=== PATIENT | female | born 1965 | race African-American/Black ===

== ENCOUNTER 2017-11-03 15:35 | Emergency (ER) | payer BC, SELFPAY ==
--- NOTE | 2017-11-03 16:36 | RAD ---
THREE VIEWS RIGHT SHOULDER: Clinical history: Pain. FINDINGS: There is mild osteoarthritis of the right acromioclavicular joint. No fracture or dislocation of the right shoulder is identified. Incidental note of osteoarthrosis of the imaged spine. IMPRESSION: 1. No acute osseous abnormality. 2. Mild osteoarthritis. POS: [facility]
== END 2017-11-03 17:35 | disposition home or self-care (01) ==
LOC: ERS 15:35
DX: M19.012 Primary osteoarthritis, left shoulder (principal); M19.011 Primary osteoarthritis, right shoulder; G62.9 Polyneuropathy, unspecified; E78.5 Hyperlipidemia, unspecified; I10 Essential (primary) hypertension; F17.210 Nicotine dependence, cigarettes, uncomplicated

== ENCOUNTER 2018-11-12 06:33 | Emergency (ER) | payer BC, SELFPAY ==
[2018-11-12] MEDS ORDERED: Dexamethasone 4 MG TAB ONE (07:34)
== END 2018-11-12 07:39 | disposition home or self-care (01) ==
LOC: ERS 06:33
DX: J06.9 Acute upper respiratory infection, unspecified (principal); F17.210 Nicotine dependence, cigarettes, uncomplicated
CPT/HCPCS: 99283; J8540

== ENCOUNTER 2019-03-03 14:28 | Outpatient (CLI) | payer BC ==
--- NOTE | 2019-03-03 14:57 | MMO ---
Bilateral MAMMO Bilat Screen [facility]. CLINICAL HISTORY: Patient is 54 years old and is seen for screening. The patient has the following family history of breast cancer: niece. The patient has no personal history of cancer. VIEWS: The views performed were: bilateral craniocaudal with tomosynthesis and bilateral mediolateral oblique with tomosynthesis. FILMS COMPARED: The present examination has been compared to prior imaging studies performed at [facility] on 09/21/2013, 02/23/2016 and 04/23/2017. MAMMOGRAM FINDINGS: The breasts are heterogeneously dense, which could obscure a lesion on mammography. There are stable benign appearing calcifications seen in both breasts. There are no suspicious masses, suspicious calcifications, or new areas of architectural distortion. IMPRESSION: THERE IS NO MAMMOGRAPHIC EVIDENCE OF MALIGNANCY. A ROUTINE FOLLOW-UP MAMMOGRAM IN 1 YEAR IS RECOMMENDED. THE RESULTS OF THIS EXAM WERE SENT TO THE PATIENT. ACR BI-RADS Category 2 - Benign finding MAMMOGRAPHY NOTE: 1. A negative mammogram report should not delay a biopsy if a dominant of clinically suspicious mass is present. 2. Approximately 10% to 15% of breast cancers are not detected by mammography. 3. Adenosis and dense breasts may obscure an underlying neoplasm.
== END 2019-03-03 14:29 | disposition home or self-care (01) ==
LOC: BICMAMMO 14:28
PROVIDERS: ATTEND Family Medicine
DX: Z12.31 Encounter for screening mammogram for malignant neoplasm of breast (principal); Z80.3 Family history of malignant neoplasm of breast
CPT/HCPCS: 77063; 77067